=== PATIENT | female | born 2000 | race Caucasian/White ===

== ENCOUNTER → 2018-02-08 | Outpatient (CLI) | payer OTHER | LOC: BMCIMAGING 11:54 | PROVIDERS: ATTEND Emergency Medicine | DX: M25.532 Pain in left wrist (principal) ==

== ENCOUNTER → 2018-02-18 | Outpatient (CLI) | payer OTHER | LOC: BMCIMAGING 10:18 | PROVIDERS: ATTEND Orthopaedic Surgery Hand Surgery | DX: S69.92XA Unspecified injury of left wrist, hand and finger(s), initial encounter (principal) ==